=== PATIENT | female | born 1990 | race Caucasian/White ===

== ENCOUNTER 2018-11-10 18:44 | Emergency (ER) | payer SELFPAY ==
[~2018-11-10 18:44] MED LIST: ISOVUE-370 76%-LOCM 1 ML ONE
[2018-11-10 19:15] LABS: #Basophils 0.1 thou/uL (0.0-0.2); #Eosinphils 0.1 thou/uL (0.0-0.7); #Lymphocytes 2.6 thou/uL (1.20-3.40); #Monocytes 0.5 thou/uL (0.11-0.59); %Basophils 0.9 % (0.0-1.0); %Eosinophils 1.3 % (0.0-10.0); %Lymphocytes 28.3 % (21.0-51.0); %Monocytes 5.1 % (0.0-10.0); %Neutrophils 64.4 % (42.0-75.0); Hemoglobin 12.4 g/dL (12.0-16.0); Mean Corpuscular HGB CONC 32.1 g/dL (32.0-36.0); Mean Platelet Volume 7.1 fL (7.4-10.4); Platelet Count 333 thou/uL (130-400); RBC Distribution Width 13.1 % (11.5-14.5); Red Blood Cell (RBC) Count 4.61 mill/uL (4.20-5.40); White Blood Cell (WBC) Count 9.3 thou/uL (4.8-10.8)
[2018-11-10] MEDS ORDERED: Ketorolac Tromethamine 30 MG/ML VIAL ONE (19:18)
--- NOTE | 2018-11-10 19:24 | RAD ---
F1 view chest: CLINICAL HISTORY: Chest pain COMPARISON: None FINDINGS: There is no focal consolidation, effusion, or pneumothorax. Cardiac silhouette is normal in size. No acute osseous abnormality. IMPRESSION: No focal consolidation.
[2018-11-10 19:25] LABS: BHCG - Serum Negative (NEGATIVE); Pregs Control Background? CLEAR/WHITE (CLR/WHITE); Pregs Control Bar Appear? YES (CONTROL BAR)
[2018-11-10 19:28] LABS: ALT (SGPT) 28 U/L (8-55); AST (SGOT) 27 U/L (5-34); Albumin 3.8 g/dL (3.5-5.0); Alkaline Phosphatase 73 U/L (40-150); Anion Gap 12 mmol/L (10-20); BUN (Urea Nitrogen) 15 mg/dL (7.0-18.7); Bilirubin, Total 0.7 mg/dL (0.2-1.2); CK (CPK) 76 U/L (29-168); Calc. Creatinine Clearance 0 mL/min (70-130); Calcium 8.9 mg/dL (7.8-10.44); Carbon Dioxide 23 mmol/L (22-29); Chloride 109 mmol/L (98-107); Estimated GFR-MDRD 84; Globulin 2.8 g/dL (2.4-3.5); Glucose 128 mg/dL (70-105); Potassium 3.8 mmol/L (3.5-5.1); Protein, Total 6.6 g/dL (6.0-8.3); Sodium 140 mmol/L (136-145)
--- NOTE | 2018-11-10 20:09 | CT ---
FCTA chest with contrast and 3-D volume rendering INDICATION: 28-year-old female with chest pain FINDINGS: There is no large, central filling defect of pulmonary trunk or main pulmonary arteries. Th ere is heterogeneity of contrast bolus with beam attenuation artifact due to overlying prominence of body wall soft tissues which does limit assessment at the level of the segmental and subsegmental pul monary arterial branches, and could obscure small peripheral emboli. There is no evidence of consolid ation, effusion, or pneumothorax. The thoracic aorta is normal in caliber. IMPRESSION: No large, acute central pulmonary embolus is identified, within limitations.
[2018-11-10] MEDS ORDERED: Ondansetron PF 4 MG/2 ML Vial ONE (20:22)
[2018-11-10] MEDS ORDERED: Lidocaine Viscous Sol 2% 15 ml UD Cup ONE (20:40)
[2018-11-10] MEDS ORDERED: Mag-Al 1200 mg/1200 mg/30 ML UDCUP ONE (20:40)
--- NOTE | 2018-11-10 22:09 | ULT ---
FGallbladder ultrasound: Multiple grayscale images of right upper quadrant obtained according to protocol. INDICATION: Pain FINDINGS: Liver: Normal Gallbladder: Shadowing cholelithiasis is present Gallbladder wall: Normal. Dennis's Sign: Negative Common bile duct is borderline in size at 5 mm Ascites: None IMPRESSION: Cholelithiasis. Borderline size common duct. Correlate with biliary laboratory values.
== END 2018-11-10 23:16 | disposition home or self-care (01) ==
LOC: ERS 18:44
DX: K80.20 Calculus of gallbladder without cholecystitis without obstruction (principal); E66.9 Obesity, unspecified
CPT/HCPCS: 71045; 71275; 76705; 80053; 82550; 84484; 84703; 85025; 93005; 94760; 96374; 96375; J1885; J2405; Q9966

== ENCOUNTER 2018-11-13 06:49 | Observation (INO) | payer SELFPAY ==
[2018-11-13] MEDS ORDERED: Ondansetron PF 4 MG/2 ML Vial ONE ×2 (07:25→17:21)
[2018-11-13] MEDS ORDERED: Morphine 4 MG/ML VIAL ONE (07:25)
[2018-11-13 07:30] LABS: #Eosinphils 0.1 thou/uL (0.0-0.7); #Lymphocytes 1.9 thou/uL (1.20-3.40); #Monocytes 0.6 thou/uL (0.11-0.59); %Basophils 0.4 % (0.0-1.0); %Lymphocytes 22.4 % (21.0-51.0); %Monocytes 7.4 % (0.0-10.0); %Neutrophils 68.8 % (42.0-75.0); Mean Corpuscular HGB CONC 32.5 g/dL (32.0-36.0); Mean Corpuscular Volume 82.9 fL (78.0-98.0); Mean Platelet Volume 7.1 fL (7.4-10.4); Platelet Count 346 thou/uL (130-400); Red Blood Cell (RBC) Count 4.81 mill/uL (4.20-5.40); White Blood Cell (WBC) Count 8.7 thou/uL (4.8-10.8)
[2018-11-13 07:38] LABS: BHCG - Serum Negative (NEGATIVE); Pregs Control Background? CLEAR/WHITE (CLR/WHITE); Pregs Control Bar Appear? YES (CONTROL BAR)
[2018-11-13 07:45] LABS: ALT (SGPT) 689 U/L (8-55); AST (SGOT) 301 U/L (5-34); Alkaline Phosphatase 187 U/L (40-150); Anion Gap 12 mmol/L (10-20); BUN (Urea Nitrogen) 11 mg/dL (7.0-18.7); Bilirubin, Total 2.7 mg/dL (0.2-1.2); Calc. Creatinine Clearance 0 mL/min (70-130); Calcium 9.3 mg/dL (7.8-10.44); Carbon Dioxide 25 mmol/L (22-29); Chloride 104 mmol/L (98-107); Estimated GFR-MDRD 87; Glucose 107 mg/dL (70-105); Lipase 11 U/L (8-78); Potassium 4.3 mmol/L (3.5-5.1); Sodium 137 mmol/L (136-145)
--- NOTE | 2018-11-13 08:08 | ULT ---
Gallbladder ultrasound: Multiple grayscale images of right upper quadrant obtained according to protocol. INDICATION: Pain Compared to 11/10/2018 exam FINDINGS: Liver: Normal Gallbladder: Cholelithiasis is redemonstrated. Gallbladder wall: Normal. Dennis's Sign: Positive. Common bile duct is normal. Measures 4 mm. Ascites: None IMPRESSION: Cholelithiasis, redemonstrated. Positive Dennis sign. Recommend clinical correlation to exclude evidence of cholecystitis.
[2018-11-13 09:43] LABS: Bilirubin Small (Negative); Blood, Urine Negative (Negative); Clarity CLEAR (Clear); Glucose, Urine (Dipstick) Negative (Negative); Leukocyte Negative (Negative); Nitrite Negative (Negative); Protein, Urine (Dipstick) Negative (Neg-Trace); Specific Gravity, Urine 1.022 (1.002-1.036); pH, Urine 6.5 (5.0-9.0)
--- NOTE | 2018-11-13 11:27 | HP ---
HISTORY OF PRESENT ILLNESS: Ms. Tate is a 28-year-old morbidly obese woman, who was initially seen in the emergency department on 11/10/2018 with acute onset epigastric to right upper quadrant abdominal pain after eating. Workup at that time included an abdominal ultrasound, which was remarkable for gallstones and slightly dilated common bile duct at 5 mm. LFTs were normal, and the patient was discharged home. The patient returns to the emergency department again today complaining of worsening epigastric right upper quadrant abdominal pain, which now radiates to the back. The pain is associated with multiple episodes of nausea and nonbilious emesis. She denies any fevers or chills. She admits to abdominal bloating and flatulence. PAST MEDICAL HISTORY: Significant for morbid obesity. She denies any other medical problems. PAST SURGICAL HISTORY: The patient denies any previous surgeries. SOCIAL HISTORY: She is . 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 She denies any cigarette smoking, ethanol, or illicit drug abuse. FAMILY HISTORY: Notable for essential hypertension in both parents. She denies any family history of diabetes mellitus. Paternal grandfather had heart disease. Paternal uncle has some sort of bone cancer. She denies any family history of inflammatory bowel disease. PREHOSPITAL MEDICATIONS: None. ALLERGIES: THE PATIENT DENIES ANY KNOWN DRUG ALLERGIES. REVIEW OF SYSTEMS: Ten-point review of systems is essentially unremarkable except as stated in past medical history and chief complaint. PHYSICAL EXAMINATION: GENERAL: This reveals a 28-year-old morbidly obese woman, who is otherwise coherent, interactive, and appears stated age. The patient is alert and oriented x3. She appears to be in no acute distress at time of my evaluation. HEENT: Reveals normocephalic and atraumatic. Pupils are equal, round, reactive to light and accommodation. She has no scleral icterus present. HEART: Reveals regular rate and rhythm. No murmurs or gallops auscultated. LUNGS: Clear to auscultation bilaterally. Her breathing, regular and nonlabored. ABDOMEN: Soft and morbidly obese. She has epigastric to right upper quadrant tenderness to palpation with a positive Dennis sign. Liver and spleen are otherwise nonpalpable below costal margin. NEUROLOGIC: Reveals no focal deficits present. EXTREMITIES: Reveal 2+ radial and pedal pulses bilaterally. No ankle edema is present. LABORATORY FINDINGS: Today includes a CBC with 8700 white blood cells, hemoglobin and hematocrit are 13.0 and 39.9 respectively. Platelet count is 346,000. Metabolic profile; sodium 137, potassium is 4.3, chloride is 104, bicarb is 25, BUN is 11, creatinine is 0.80, glucose is 107, total bilirubin is elevated at 2.7, AST and ALT are both elevated at 301 and 689 respectively. Alkaline phosphatase is also elevated at 187. Serum lipase is normal at 11. Serum test is negative. I have personally reviewed the abdominal ultrasound, which is remarkable for multiple intraluminal gallstones. There is no gallbladder wall thickening or pericholecystic fluid present. Common bile duct is normal in diameter at 4 mm. IMPRESSION: 1. Acute cholecystitis with cholelithiasis. 2. Abnormal liver function tests, likely secondary to choledocholithiasis. RECOMMENDATIONS: I will ask Gastroenterology to evaluate the patient for possible preoperative ERCP. Following ERCP, the patient will undergo laparoscopic cholecystectomy. Above findings and plan discussed with the patient, who indicates understanding of information given. I have advised the patient of the risks and benefits of the proposed surgery to include, but not limited to, bleeding, infection, injury to bile duct or surrounding structures. The patient indicates understanding of the information that provided to her in the presence of her . I have answered their questions. The patient has granted consent for this admission and surgical intervention. Job ID: [id number]
[2018-11-13] MEDS ORDERED: Levofloxacin 500 mg/D5W 100 ml Premix Bag ONE (12:57)
[2018-11-13] MEDS ORDERED: Scopolamine 1.5 mg/72 hour Patch ONE (12:57)
[2018-11-13] MEDS ORDERED: Midazolam HCl 2 mg/2 ml Vial ONE (12:57)
[2018-11-13] MEDS ORDERED: Fentanyl 100 MCG/2 ML VIAL ONE (13:04)
[2018-11-13] MEDS ORDERED: Iothalamate Meglumine 60% 50 ML VIAL FS ONE ×2 (13:12→13:23)
[2018-11-13] MEDS ORDERED: Indomethacin 50 MG SUPP ONE (13:12)
[2018-11-13] MEDS ORDERED: Glycopyrrolate 0.2 MG/ML 5 ML SYRINGE ONE (13:16)
[2018-11-13] MEDS ORDERED: Ketorolac Tromethamine 30 MG/ML VIAL ONE (13:16)
[2018-11-13] MEDS ORDERED: Metoclopramide HCl 10 MG/2 ML VIAL ONE (13:16)
[2018-11-13] MEDS ORDERED: Rocuronium Bromide 10 MG/ML (10ML VIAL) ONE (13:17)
[2018-11-13] MEDS ORDERED: PROPOFOL 200 MG/20 ML VIAL ONE (13:17)
[2018-11-13] MEDS ORDERED: Succinylcholine Chloride 20 MG/ML 10 ml SYRINGE FS ONE (13:17)
[2018-11-13] MEDS ORDERED: Lidocaine 1% PF 5 ML VIAL ONE (13:17)
[2018-11-13] MEDS ORDERED: Bupivacaine/Epinephrine 0.25% 30 ML VIAL ONE (13:23)
--- NOTE | 2018-11-13 14:49 | CON ---
DATE OF CONSULTATION: 11/13/2018 REASON FOR CONSULTATION: 1. Abdominal pain, nausea, vomiting, and gallstones. 2. Abnormal LFTs, possibly represent common bile duct stone. HISTORY OF PRESENT ILLNESS: Ms. Sommer Tate is a very pleasant 28-year-old female seen in the ER this morning with abdominal pain, nausea, and vomiting. The patient was actually here 2 days ago in the ER with abdominal similar symptoms. She had an abdominal sonogram and was told to have gallstones at [facility] like an outpatient. The patient did well on Monday, but the pain recurred again, and today with the same kind of pain. The pain is over the epigastric area at the right upper quadrant going towards the back. She had nausea with vomiting multiple times. No history of fever or chills. She came back to the ER today and had elevated LFTs today. However, the common bile duct remains normal sized at 4 mm. However, her liver function tests are elevated. Because of the elevated LFTs, there is a possibility of common bile duct stone. Her LFTs on 11/10/2018 were completely normal. The bilirubin was 0.7, AST 27, ALT 28, alkaline phosphatase 73. Today , the bilirubin is 2.7, AST 301, ALT 67, alkaline phosphatase 183. The plan is being made for laparoscopic cholecystectomy by Dr. Fall and also an ERCP by me at the same time. At the present time, she appears very comfortable. She is obese. She has mild abdominal pain, some nausea. She has had no similar episodes, except 2 days ago. She does have family history of gallstone. Her sister who 13 years ago had her gallbladder taken out in the past. No relevant history. ALLERGIES: NONE. SOCIAL HISTORY: The patient is . She does not smoke or drink alcohol. MEDICAL ILLNESSES: Obesity. Otherwise, no other medical illness. PAST SURGICAL HISTORY: None. MENSTRUAL HISTORY: Periods are regular. LMP over this weekend, and she usually bleeds for 3 to 4 days. FAMILY HISTORY: Hypertension, and one uncle with bone cancer. Sister with gallbladder surgery. REVIEW OF SYSTEMS: Ten-point system review is totally unremarkable. PHYSICAL EXAMINATION: GENERAL: She is very obese, appears comfortable, in no acute distress. She is mildly icteric. VITAL SIGNS: Her vital signs are stable. NECK: Supple. No adenitis or thyromegaly noted. CARDIOVASCULAR: First and second heart sounds. LUNGS: Clear to auscultation. ABDOMEN: Soft and mildly tender in the epigastric area at the right upper quadrant. There is no rebound or guarding. No organomegaly. No masses. EXTREMITIES: Reveal no edema. LABORATORY DATA: From today, CBC; WBC 8700, hemoglobin 13, hematocrit 39.9, MCV normal, platelet count 346,000, polymorphs 68, lymphocytes 22. Chem 7 is normal. The glucose is 107, bilirubin is 2.7, AST is 301, and ALT is 89, alkaline phosphatase is 187. Abdominal sonogram shows gallstones and CBD at 5 mm. CLINICAL IMPRESSION: 1. A 28-year-old female with abdominal pain, nausea, vomiting, and gallstones on abdominal sonogram. Her liver function tests are normal over the weekend, and now they are really bumped up. The patient most likely has a retained bile duct stone or possibly she has passed the stone. 2. Obesity. RECOMMENDATION: ERCP with stone extraction. I met with the patient and the patient's sonKonstantin in the room and explaining about the ERCP procedure, potential risks like bleeding, perforation, sepsis, pancreatitis. The patient fully understood the procedure and agreed. I will plan for ERCP today. Job ID: [id number] MTDD
--- NOTE | 2018-11-13 15:25 | RAD ---
XR ERCP History: [ERCP. Common bile duct stones] Comparison: Ultrasound gallbladder same day Findings: ERCP was performed. There is balloon sweep with removal of stones in the common bile duct. Impression: Fluoroscopy for surgical purposes.
--- NOTE | 2018-11-13 15:46 | OP ---
DATE OF PROCEDURE: 11/13/2018 PROCEDURES PERFORMED: 1. Endoscopic retrograde cholangiopancreatography with papillotomy. 2. Endoscopic retrograde cholangiopancreatography with stone extraction size 9 to 12 mm. PREOPERATIVE DIAGNOSES: Abdominal pain, abnormal LFTs, common bile duct stone. POSTOPERATIVE DIAGNOSIS: Two filling defects in the common bile duct stone with normal caliber CBD. DESCRIPTION OF PROCEDURE: The patient was intubated and was given sedation by Anesthesia Department. The patient was transferred from the stretcher to the fluoroscopy table. The patient was turned on left transverse position and placed on her stomach. A bite block was placed. A Pentax video duodenoscope under direct vision passed down the oropharynx to the GE junction into the stomach and subsequently descending duodenum. The papilla was identified. The papilla was cannulated over a guidewire into the common bile duct. Injection of the contrast shows the common bile duct catheter to be normal in size. The ducts were dilated. There were two filling defects seen in the common bile duct. A generous papillotomy was made at 12 o'clock position. The cut was made to a size about 1 to 1.5 cm. Following the papillotomy, there was brisk biliary drainage noted. Bile appears very clear and not dark. The papillotome was exchanged to a biliary balloon size 9 to 12 mm. The balloon was swept in the common bile duct for 4 or 5 times. . Subsequently, occlusion cholangiogram was performed. There were no filling defects seen. The balloon size 12 was easily came out of the papillotomy. There was good biliary drainage noted. The stomach decompressed, and the scope removed. RECOMMENDATION: Proceed with laparoscopic cholecystectomy by Dr. Fall. Job ID: [id number]
[2018-11-13] MEDS ORDERED: Promethazine HCl 25 MG/ML VIAL IM PRN ×2 (16:56→17:03)
[2018-11-13] MEDS ORDERED: Promethazine HCl 25 MG/ML VIAL SLOW IVP PRN (16:56)
[2018-11-13] MEDS ORDERED: Ondansetron HCl/PF 4 MG/2 ML Vial IVP PRN (16:56)
[2018-11-13] MEDS ORDERED: Calcium Carbonate 500 MG ChewTAB PO PRN (17:03)
[2018-11-13] MEDS ORDERED: Ondansetron PF 4 MG/2 ML Vial IVP PRN (17:03)
[2018-11-13] MEDS ORDERED: Mag-Al 1200 mg/1200 mg/30 ML UDCUP PO PRN (17:03)
[2018-11-13] MEDS ORDERED: hydrALAZINE 20 MG/ML VIAL SLOW IVP PRN (17:03)
[2018-11-13] MEDS ORDERED: Dextrose 5% in Water 1,000 ML IV PRN (17:03)
[2018-11-13] MEDS ORDERED: Dextrose 50% Abboject 50 ML SYRINGE SLOW IVP PRN (17:03)
[2018-11-13] MEDS ORDERED: traMADol HCl 50 MG TAB PO PRN (17:06)
[2018-11-13] MEDS ORDERED: Acetaminophen 500 MG TAB PO PRN (17:06)
[2018-11-13] MEDS ORDERED: Piperacillin/Tazobactam 3.375 GM in Sodium Chloride 0.9% 100 ML IVPB SCH (18:00)
[2018-11-13] MEDS: Ketorolac Tromethamine 30 MG/ML VIAL IVP SCH (19:37)
[2018-11-13] MEDS: Lactated Ringer's 1,000 ML IV SCH (19:38)
[2018-11-13] MEDS: traMADol HCl 50 MG TAB PO PRN (21:01)
[2018-11-13] MEDS ORDERED: Acetaminophen 325 MG Suppository PR PRN (21:04)
[2018-11-13] MEDS: Famotidine 20 MG TAB PO SCH (21:56)
[2018-11-13] MEDS: Piperacillin/Tazobactam 3.375 GM in Sodium Chloride 0.9% 100 ML IVPB SCH (22:04)
[2018-11-13] MEDS: Famotidine/PF 20 mg/2ml Vial SLOW IVP SCH (22:04)
[2018-11-13] MEDS: Enoxaparin Sodium 30 MG/0.3 ML SYRINGE SC SCH (22:05)
--- NOTE | 2018-11-13 23:01 | OP ---
DATE OF PROCEDURE: 11/13/2018 PREOPERATIVE DIAGNOSES: 1. Acute cholecystitis. 2. Choledocholithiasis, status post endoscopic retrograde cholangiopancreatography and common bile duct stone extraction. POSTOPERATIVE DIAGNOSES: 1. Acute cholecystitis. 2. Choledocholithiasis, status post endoscopic retrograde cholangiopancreatography and common bile duct stone extraction. OPERATION PERFORMED: Laparoscopic cholecystectomy. ANESTHESIA: General endotracheal. ESTIMATED BLOOD LOSS: 10 mL. FLUIDS GIVEN: 1500 mL crystalloids. COUNTS: Sponge and instrument counts were verified as correct x2. COMPLICATIONS: None apparent at time of operation. INDICATIONS FOR OPERATION: This is a 28-year-old morbidly obese woman with a BMI over 60, who presented with epigastric right upper quadrant abdominal pain. Clinical radiographic examination was consistent with acute cholecystitis with cholelithiasis and choledocholithiasis. The patient was seen by Gastroenterology, underwent an ERCP with common bile duct obstruction. She was brought to operating room for laparoscopic cholecystectomy. Findings are consistent with gallbladder in the usual anatomic location partially encased by omental adhesions. DESCRIPTION OF PROCEDURE: Informed consent was obtained from the patient, who was brought to the operating room and placed in supine position. Following general anesthesia, abdomen was sterilely prepped and draped in usual fashion. Skin below the umbilicus was infiltrated with 0.25% Marcaine with epinephrine. A small curvilinear infraumbilical incision was made using 11 scalpel. Umbilical stalk was grasped with Jackelyn and elevated. Veress needle was inserted through the incision and placed in the peritoneal cavity through which the abdomen was insufflated with 3 L of CO2 gas. Intraabdominal pressure was noted at 4 mmHg. Following abdominal insufflation, Veress needle was removed and a 5-mm trocar was introduced using a Visiport under laparoscopy. Laparoscopy confirmed proper placement of the port. No injuries to underlying structures. Additional laparoscopy reveals gallbladder in the usual anatomic location partially encased by omental adhesions. Under direct laparoscopy, a 12 mm epigastric and two 5 mm right lateral subcostal ports were placed after the overlying skin was infiltrated with 0.25% Marcaine with epinephrine and appropriate incision was made. The patient was placed in a reverse Trendelenburg position. I introduced a Prestige grasper through the right lateral subcostal port grasping the fundus of the gallbladder, which was elevated cephalad. Using a [place] dissector with cautery, omental adhesions were taken down from remainder of the gallbladder. A second Prestige grasper was introduced through the right medial subcostal port grasping the Jose pouch, which was retracted laterally. The cystic duct was carefully dissected free from surrounding structures at the triangle of Calot. The duct was divided between clips. Two clips were applied proximally, one clip at the junction of the cystic duct and gallbladder. The cystic artery was dissected free from surrounding structures and divided between clips in a similar fashion. The gallbladder itself was removed from the liver bed with good hemostasis. The gallbladder was delivered off the abdominal cavity using the EndoCatch. Operative site was inspected for good hemostasis. No bile stains noted. All clips remained in place. Finding no other pathology, laparoscopy was terminated. Fascia of the epigastric port was closed using 0 Vicryl suture and Endoclose device on the laparoscopy. The abdomen was desufflated. All ports and instruments were removed and accounted for. Skin incisions were closed using 4-0 Monocryl suture in subcuticular fashion. Dermabond was applied over incisional closure. The patient tolerated the operation without any apparent complication and was returned to the recovery room in satisfactory condition. Job ID: [id number]
[2018-11-14] MEDS: Lactated Ringer's 1,000 ML IV SCH ×2 (00:27→10:05)
[2018-11-14] MEDS: Ketorolac Tromethamine 30 MG/ML VIAL IVP SCH ×2 (01:11→05:40)
[2018-11-14] MEDS: Piperacillin/Tazobactam 3.375 GM in Sodium Chloride 0.9% 100 ML IVPB SCH ×3 (03:21→14:26)
[2018-11-14 05:25] LABS: #Lymphocytes 2.1 thou/uL (1.20-3.40); #Monocytes 0.7 thou/uL (0.11-0.59); #Neutrophils 9.7 thou/uL (1.40-6.50); %Basophils 0.3 % (0.0-1.0); %Eosinophils 0.2 % (0.0-10.0); %Lymphocytes 16.7 % (21.0-51.0); %Monocytes 5.3 % (0.0-10.0); %Neutrophils 77.6 % (42.0-75.0); Hemoglobin 12.3 g/dL (12.0-16.0); Mean Corpuscular Hemoglobin 27.3 pg (27.0-31.0); Mean Corpuscular Volume 85.3 fL (78.0-98.0); Mean Platelet Volume 7.1 fL (7.4-10.4); Platelet Count 321 thou/uL (130-400); RBC Distribution Width 13.2 % (11.5-14.5); Red Blood Cell (RBC) Count 4.51 mill/uL (4.20-5.40); White Blood Cell (WBC) Count 12.5 thou/uL (4.8-10.8)
[2018-11-14 05:39] LABS: ALT (SGPT) 510 U/L (8-55); AST (SGOT) 142 U/L (5-34); Albumin 3.7 g/dL (3.5-5.0); Alkaline Phosphatase 171 U/L (40-150); Anion Gap 10 mmol/L (10-20); BUN (Urea Nitrogen) 9 mg/dL (7.0-18.7); Bilirubin, Direct 0.6 mg/dL (0.1-0.3); Bilirubin, Total 1.4 mg/dL (0.2-1.2); Calc. Creatinine Clearance 0 mL/min (70-130); Calcium 8.8 mg/dL (7.8-10.44); Carbon Dioxide 26 mmol/L (22-29); Chloride 106 mmol/L (98-107); Estimated GFR-MDRD 89; Glucose 91 mg/dL (70-105); Phosphorus 3.8 mg/dL (2.3-4.7); Potassium 4.2 mmol/L (3.5-5.1); Protein, Total 6.6 g/dL (6.0-8.3); Sodium 138 mmol/L (136-145)
[2018-11-14] MEDS: traMADol HCl 50 MG TAB PO PRN (05:41)
[2018-11-14 05:48] VITALS: BMI 62.6
[2018-11-14] MEDS: Famotidine/PF 20 mg/2ml Vial SLOW IVP SCH (09:31)
[2018-11-14] MEDS: Enoxaparin Sodium 30 MG/0.3 ML SYRINGE SC SCH (09:33)
[2018-11-14] MEDS: Famotidine 20 MG TAB PO SCH (09:33)
[2018-11-14] MEDS ORDERED: Ibuprofen 800 MG TAB PO PRN (11:21)
[2018-11-14] MEDS ORDERED: Acetaminophen 500 MG TAB PO SCH (12:00)
[2018-11-14 16:02] VITALS: BP 118/75; TEMP 98.9
--- NOTE | 2018-11-15 04:08 | DIS ---
DATE OF ADMISSION: 11/13/2018 DATE OF DISCHARGE: 11/14/2018 DISCHARGING PHYSICIAN: Tino Fall DO CONSULTANTS: Vignesh Kelly MD with Gastroenterology. ADMITTING DIAGNOSES: 1. Acute cholecystitis with cholelithiasis. 2. Choledocholithiasis. DISCHARGE DIAGNOSES: 1. Acute cholecystitis with cholelithiasis. 2. Choledocholithiasis. OPERATIONS AND PROCEDURES: 1. ERCP with common bile duct stone extraction by Dr. Kelly on 11/13/2018. 2. Laparoscopic cholecystectomy by Juan David on 11/13/2018. 3. Please see separate dictations for the op report. HISTORY AND HOSPITAL COURSE: A 28-year-old morbidly obese woman, BMI 62.7 kg/m2, was admitted yesterday with insidious onset abdominal pain. Clinical radiographic examination was consistent with acute cholecystitis with cholelithiasis and suspected choledocholithiasis. The patient underwent ERCP with common bile duct stone extraction by Dr. Kelly following which I performed the laparoscopic cholecystectomy without incident. Following surgery, the patient was admitted to the surgical floor, where she remained at time of discharge. Postop day #1, she is ambulating with minimal difficulty. She is tolerating general diet, having normal bowel and urinary function. She has remained hemodynamically stable and afebrile through this hospitalization. Clinical examination today, the wound remains intact, clean, dry. She has no peritoneal signs on examination. The patient will be discharged home today with the following instructions. 1. She follows up with me in the Surgery Clinic in 2 weeks. 2. She is to avoid weight lifting in excess of 20 pounds until she has been released by me. 3. I have encouraged her to ambulate vigorously and daily to avoid complications of venous thromboembolism of which patient is at high risk for. 4. The patient is also instructed to call me with any questions or problems including intolerance to oral intake, fever in excess of 101 degrees Fahrenheit, abnormal drainage from the incisional wound, or any exacerbation of abdominal pain. 5. She may resume all her prehospital medication as prescribed by her primary care physician. 6. She may shower and avoid soaking herself in a bathtub or swimming until she has been released by me. All these instructions were given to the patient in the presence of her mother. I did give a prescription for tramadol 50 mg #20 to be taken 1 to 2 p.o. q.6 hours p.r.n. breakthrough pain. She may take Tylenol 1000 mg p.o. q.6 hours alternating this with ibuprofen 800 mg p.o. q.8 hours p.r.n. pain. The patient has indicated understanding information given to her today. I have answered her questions. She has expressed gratitude for the care rendered to her during this hospitalization and surgery. Job ID: [id number]
== END 2018-11-14 16:40 | disposition home or self-care (01) ==
LOC: ERS 06:49 → SURG A 18:02
PROVIDERS: ADMIT Surgery; ATTEND Surgery
PROC: 0FT44ZZ Resection of Gallbladder, Percutaneous Endoscopic Approach (ICD-10-PCS; principal; 2018-11-14)
PROC: 0F798ZZ Dilation of Common Bile Duct, Via Natural or Artificial Opening Endoscopic (ICD-10-PCS; 2018-11-14)
DX: K80.64 Calculus of gallbladder and bile duct with chronic cholecystitis without obstruction (principal); E66.01 Morbid (severe) obesity due to excess calories; Z68.44 Body mass index [BMI] 60.0-69.9, adult
CPT/HCPCS: 36415; 74330; 76705; 80048; 80053; 80076; 81003; 83690; 83735; 84100; 84703; 85025; 88304; 96361; 96365; 96366; 96374; 96375; 96376; G0378; J0131; J1650; J1885; J1956; J2001; J2250; J2270; J2405; J2543; J2550; J2704; J2765; J3010; J7050; Q9961